=== PATIENT | male | born 1960 | race Caucasian/White ===

== ENCOUNTER → 2017-07-03 10:56 | Outpatient (CLI) | payer BC ==
[2015-04-13 17:28] VITALS: BMI 25.3
[~2017-07-03 10:56] MED LIST: CO Q 10 PO; DELZICOL400 MG PO; GLUCOSAMINE & C1 CAP PO; MULTIPLE VITAMI1 TA1 PO; OMEGA 3 FISH OI1 CAP PO; PERCOCET 10/3251 TA1 PO; PHENERGAN25 MG RC; PRILOSEC20 MG PO; ZOFRAN ODT4 MG/UDTAB PO; [UNRECOGNIZED DRUG - OTHER] PO
== END | disposition home or self-care (01) ==
LOC: D.RAD 10:56
DX: K21.9 Gastro-esophageal reflux disease without esophagitis (principal); K22.70 Barrett's esophagus without dysplasia

== ENCOUNTER 2017-08-01 05:48 | Day surgery (SDC) | payer BC ==
[~2017-08-01 05:48] MED LIST changes: +CALCIUM 250+D T1 TAB PO; +COLAZAL750 MG PO; +FLUTICASONE PRO16 GM NASAL
[2017-08-01 06:17] LABS: BASOPHILS 0.4 % (0-2); EOSINOPHILS 1.2 % (0-7); HEMATOCRIT 47.2 % (42.0-54.0); IMMATURE GRANULOCYTES 0.1 % (0-5); LYMPHOCYTES 28.6 % (15-50); MCH 30.5 pg (26.0-34.0); MCHC 33.9 g/dL (31.0-37.0); MCV 90.1 fL (80.0-100.0); MEAN PLATELET VOLUME 11.4 fL (7.4-10.4); MONOCYTES 7.8 % (2-11); NEUTROPHILS 61.9 % (40-80); PLATELET COUNT 220 10x3/uL (130-400); RBC 5.24 10x6/uL (4.20-6.10); RDW 14.4 % (11.5-14.5); WBC 6.9 10x3/uL (4.8-10.8)
[2017-08-01 06:32] LABS: CALC OSMOLALITY 277 mosm/kg (275-300); CALCIUM 9.1 mg/dL (8.5-10.1); CARBON DIOXIDE 28.8 mmol/L (21.0-32.0); CHLORIDE - SERUM 104 mmol/L (98-107); GLUCOSE 97 mg/dL (74-106); POTASSIUM - SERUM 4.3 mmol/L (3.5-5.1); SODIUM 139 mmol/L (136-145); UREA NITROGEN 13 mg/dL (7-18); eGFR NON AFRICAN AMERICAN 82 mL/min (90-120)
[2017-08-01 08:23] VITALS: BP 140/82; BMI 26.0
[2017-08-01 13:30] VITALS: BP 140/90
--- NOTE | 2017-08-01 13:30 | NUR ---
TO ROOM 2218 FROM PACU VIA BED.PT WITHOUT DISTRESS.BANDAIDS TO ABD CLEAN,DRY AND INTACT X5. ORIENTATION TO ROOM WITH PT AND FAMILY.CALL LIGHT IN REACH.
[2017-08-01 17:57] VITALS: BP 140/90; BMI 26.0
--- NOTE | 2017-08-01 18:42 | NUR ---
REMAINS WITHOUT NEEDS,WITHOUT DISTRESS.PAIN CONTROLLED WITH SOLID WASTE COLLECTOR. CONT PLAN OF CARE
[2017-08-01 20:00] VITALS: BP 138/81
--- NOTE | 2017-08-01 20:00 | NUR ---
ASSESSMENT PER FLOWSHEET BANDAIDES X5 TO LAP SITES ON ABDOMEN C/D/I. IV PATENT RT ARM OF NS AT 125CC'S/HR FELLING BUCKING SUPERVISOR OF DILAUDID IN USE FOR PAIN CONTROL. O2 ON 3L/MN PER NC NO DISTRESS. AT BEDSIDE. SCD'S ON. SR UP X2 CALL LIGHT WITHIN REACH.NPO AT THIS TIME.
--- NOTE | 2017-08-01 22:00 | NUR ---
STOOD AT BEDSIDE TO ATTEMPT TO VOID. NO VOID. WILL TRY AGAIN.
[2017-08-02] VITALS: BP 125/79
--- NOTE | 2017-08-02 | NUR ---
URINAL IN PLACE NO VOID AT THIS TIME.
--- NOTE | 2017-08-02 02:00 | NUR ---
STOOD AT BEDSIDE PLACED URINAL UNABLE TO VOID. BLADDER SCAN DONE. 945CC'S NOTED ON SCANNER. IN AND OUT CATH 1100CC'S YELLOW URINE RETURNED.
--- NOTE | 2017-08-02 03:39 | NUR ---
RESTING QUIETLY NO DISTRESS.
[2017-08-02 04:00] VITALS: BP 135/79
[2017-08-02 05:51] LABS: BASOPHILS 0.2 % (0-2); EOSINOPHILS 0 % (0-7); HEMATOCRIT 42.5 % (42.0-54.0); HEMOGLOBIN 14.3 g/dL (13.5-17.5); IMMATURE GRANULOCYTES 0.4 % (0-5); LYMPHOCYTES 7.9 % (15-50); MCH 30.1 pg (26.0-34.0); MCHC 33.6 g/dL (31.0-37.0); MCV 89.5 fL (80.0-100.0); MONOCYTES 7.7 % (2-11); NEUTROPHILS 83.8 % (40-80); PLATELET COUNT 201 10x3/uL (130-400); RBC 4.75 10x6/uL (4.20-6.10); RDW 14.4 % (11.5-14.5)
[2017-08-02 06:09] LABS: WBC 13.4 10x3/uL (4.8-10.8)
[2017-08-02 06:30] LABS: CALC OSMOLALITY 278 mosm/kg (275-300); CALCIUM 8.1 mg/dL (8.5-10.1); CARBON DIOXIDE 24.8 mmol/L (21.0-32.0); CHLORIDE - SERUM 105 mmol/L (98-107); GLUCOSE 115 mg/dL (74-106); POTASSIUM - SERUM 4.6 mmol/L (3.5-5.1); SODIUM 139 mmol/L (136-145); UREA NITROGEN 12 mg/dL (7-18); eGFR NON AFRICAN AMERICAN 82 mL/min (90-120)
--- NOTE | 2017-08-02 08:00 | NUR ---
OFF UNIT VIA FOR PROCEDURE.
--- NOTE | 2017-08-02 08:15 | NUR ---
RETURNED FROM PROCEDURE.
--- NOTE | 2017-08-02 08:50 | NUR ---
AWAKE AND ALERT. ORIENTED X3. NO C/O AT THIS TIME. LUNGS ARE CLEAR BILATERALLY, NO COUGH NOTED. SKIN IS INTACT WITHOUT REDNESS EXCEPT 5 SMALL INSERTION SITES TO ABDOMEN WHICH HAVE BANDAIDS IN PLACE. BOWEL SOUNDS ARE HYPOACTIVE AT THIS TIME. REPORTS NO VOID OF YET SINCE I/O CATH. WILL MONITOR. IV TO RIGHT HAND IS PATENT WITHOUT REDNESS AT INSERTION SITE. AT BEDSIDE. DENIES NEEDS.
--- NOTE | 2017-08-02 10:10 | NUR ---
ELECTRICAL SOFTWARE ENGINEER DISCONTINUED AT THIS TIME. PATIENT INSTRUCTED ABOUT PO PAIN MEDS. ALL QUESTIONS ANSWERED.
--- NOTE | 2017-08-02 11:15 | NUR ---
AMBULATED IN HALLWAY WITH . DID OVER 250 FEET. ABLE TO VOID 150cc CLEAR YELLOW URINE ON HIS OWN AFTER ACTIVITY. WILL CONTINUE TO MONITOR.
[2017-08-02 12:12] VITALS: BP 128/78
--- NOTE | 2017-08-02 12:30 | NUR ---
SITTING UP IN BED EATING LIQUID TRAY. DENIES DISCOMFORT WITH FOOD. WILL MONITOR.
--- NOTE | 2017-08-02 13:41 | NUR ---
VOIDED 175cc CLEAR YELLOW URINE. AMBULATED OVER 500 FEET IN HALLWAY. BLADDER SCAN POST ACTIVITY SHOWED 56ML OF URINE.
--- NOTE | 2017-08-02 14:03 | OP ---
PATIENT NAME: DIMA CAN MEDICAL RECORD: [id number] :62 LOCATION:[facility]2218 ADMISSION DATE: SURGEON: SHANTANU CHEATHAM MD DATE OF OPERATION: 08/01/2017 PREOPERATIVE DIAGNOSES: 1. GERD. 2. King esophagus. 3. Ulcerative colitis. POSTOPERATIVE DIAGNOSES: 1. GERD. 2. King esophagus. 3. Ulcerative colitis. PROCEDURE: Redo laparoscopic Lindy fundoplication. SURGEON: Shantanu Cheatham MD REPORT OF PROCEDURE: The patient's abdomen was prepped and draped in sterile fashion. A Veress needle was inserted in the left upper quadrant and the abdomen was insufflated. An 11-mm Visiport trocar was inserted in the midline just above the umbilicus. The Veress needle was inspected and there was no sign of any injury to bowel or surrounding structures. An 11-mm trocar was placed in the left subcostal region. A 5-mm trocar was placed in the epigastrium, a 5-mm trocar was placed in the left lateral abdomen, and a final 5-mm trocar was placed in the right lateral subcostal region. The liver retractor was inserted and the left lobe of the liver was elevated. The patient had some adhesions present from the previous laparoscopic hiatal hernia repair with Lindy fundoplication. These adhesions were carefully taken down. Mainly, the adhesions were of the Lindy wrap to the undersurface of the liver and also to the esophageal hiatus. As we took these adhesions down, we were able to advance into the patient's thoracic cavity. The thoracic cavity was actually quite free of adhesions. We were able to see the esophagus clearly and there was no sign of any injury throughout this portion of the procedure. We took down some more of the short gastrics on the greater curvature of the stomach and continued our dissection posterior to the stomach until we had it completely freed up. The wrap was then approached. I could see that the wrap was intact on its inferior aspect, but the superior aspect looks as if the sutures had come loose. The inferior suture was still holding the wrap together, but more loose than what I would expect it was at the time of surgery. This suture was transected and I never saw any other sutures that were holding the wrap together. At this point, we continued our dissection around the fundus of the stomach, which was wrapped around the distal esophagus. We were able to take this wrap down and completely lay everything out in its normal anatomic position. At this point, we looked at the esophageal hiatus and it had come loose at its superior portion, so a single #0 Polydek suture was used to reapproximate the tissue. This brought the tissue together where it was fairly close to the esophagus. We then performed a 360-degree posterior wrap of the fundus of the stomach around the distal esophagus. This was done using interrupted #0 Polydek times 3 with the top and the bottom suture incorporating a bite of the esophagus. The wrap appeared to lie in good position and did not appear to be too tight. We inspected the abdomen and irrigated out with normal saline. There was no sign of any active bleeding visible. At this point, the liver retractor was removed and the 11-mm trocar site fascias were then closed with interrupted #0 Vicryls using a OPERATIVE REPORT [id number] DIMA CAN suture passer device. The ports and insufflation were then removed. The wounds were then infused with a total of 10 mL of 0.25% Marcaine with epinephrine and then closed with subcutaneous 5-0 Monocryl. The wounds were then dressed appropriately. COMPLICATIONS: None. CONDITION: Stable. ANESTHESIA: General endotracheal and local. BLOOD LOSS: 50 mL. TRANSINT:[id number] Voice Confirmation ID: [id number] DOCUMENT ID: [id number] SHANTANU CHEATHAM MD at 1403 CC: LESLYE MERA MD and LILLIANA HAYES MD [id number] DICTATION DATE: 08/01/17 1239 LEAD TECHNOLOGIST IN CYTOGENETICS: 08/01/17 1350 [facility] [address] [place] [id number]
[2017-08-02] MEDS ORDERED: HYDROCODONE-APA1 TAB PO (14:41)
[2017-08-02] MEDS ORDERED: REGLAN10 MG PO (14:41)
--- NOTE | 2017-08-02 15:56 | NUR ---
DISCHARGED TO HOME AMBULATORY WITH . DISCHARGE INSTRUCTIONS GIVEN BOTH VERBALLY AND WRITTEN. ALL QUESTIONS ANSWERED. PATIENT AND VERBALIZED UNDERSTANDING OF SAME. NEEDED PRESCRIPTIONS ESCRIBED TO PHARMACY OF CHOICE AND GIVEN HARD SCRIPT FOR HYDROCODONE. IV TO RIGHT HAND D/C WITH CATHETER INTACT.
== END 2017-08-02 16:02 | disposition home or self-care (01) ==
LOC: D.OPS 05:48 → D.MS 05:48 → D.PAN 09:30 → D.OPS 10:15 → D.PAN 10:15 → D.MS 12:53 → D.OPS 08-02 16:02
PROVIDERS: Surgery
DX: K21.9 Gastro-esophageal reflux disease without esophagitis (principal); K22.70 Barrett's esophagus without dysplasia; K44.9 Diaphragmatic hernia without obstruction or gangrene; Z87.891 Personal history of nicotine dependence; Z01.812 Encounter for preprocedural laboratory examination

== ENCOUNTER → 2020-02-29 14:04 | Outpatient (CLI) | payer BC ==
[~2020-02-29 14:04] MED LIST changes: +HYDROCODONE-APA1 TAB PO; +REGLAN10 MG PO
--- NOTE | 2020-03-02 08:16 | ST ---
PATIENT:DIMA CAN MEDICAL RECORD: [id number] SEX: M LOCATION:[facility] ORDER #: ADMISSION DATE: 02/29/20 AGE OF PATIENT: 59 REFERRING PHYSICIAN: INTERPRETING PHYSICIAN: LEIGHA BEGUM MD DATE OF SERVICE: 02/29/2020 PROCEDURE: Treadmill stress test. Baseline ECG is normal. Exercise for 9 minutes 26 seconds on Philippe protocol. Maximum heart rate 152 beats per minute, greater than 85% of max predicted. No ECG changes for ischemia. No symptoms of ischemia. Normal blood pressure response to exercise. No arrhythmias noted. Fair to good exercise tolerance for age. TRANSINT:[id number] Voice Confirmation ID: [id number] DOCUMENT ID: [id number] LEIGHA BEGUM MD at 0816 CC: [id number] DICTATION DATE: 03/01/20 1534 SALES CONSULTANT: 03/02/20 0148 DEP CLI 02/29/20 [id number] [place] [id number]
--- NOTE | 2020-03-02 08:16 | EC ---
PATIENT:DIMA CAN DATE OF SERVICE: 02/29/20 SEX: M MEDICAL RECORD: [id number] DATE OF : 62 LOCATION:D[facility] AGE OF PATIENT: 59 ADMISSION DATE: 02/29/20 REFERRING PHYSICIAN: INTERPRETING PHYSICIAN: LEIGHA BEGUM MD ECHOCARDIOGRAM REPORT ECHO CHARGES 4 ECHO COMPLETE Date: 02/29/20 CLINICAL DIAGNOSIS: HEART MURMUR ECHOCARDIOGRAPHIC MEASUREMENTS (adult normal given) AC root (d.<3.7cm) 3.2 cm LV Septum d (<1.2 cm> 1.2 cm Valve Excursion 1.7 cm LV Septum (systole) 1.4 cm Left Atria (s.<4.0cm> 4.1 cm LVPW d(<1.2cm) 1.2 cm RV (d.<2.3cm) 3.8 cm LVPW (sytole) 1.7 cm LV diastole(<5.6CM) 5.0 cm MV E-F(>70mm/sec) cm LV systole 2.8 cm LVOT Diameter 1.9 cm MV exc.(>10mm) 1.5 cm Est.ejection fraction (50-75%) % DOPPLER: LVIT cm/sec A 76.0 cm/sec E 85.0 cm/sec LA cm/sec RVSP 28 mmHg LVOT 95 cm/sec AOP1/2T m/s Asc. Ao 117 cm/sec RVOT 78 cm/sec RA cm/sec PA 95 cm/sec AV Gradient Peak 5.47 mmHg AV Mean 2.66 mmHg AV Area 2.3 cm MV Gradient Peak 5.99 mmHg MV Mean 2.00 mmHg MV Area cm COMMENTS: Desktop Support Technician: 2 FIDEL MARIE Supervisor Tellers: 3 Dr. Lee TAPE# PACS Pericardial Effusion N DATE OF SERVICE: Adequate 2D, color flow imaging, spectral Doppler, and M-Mode. Borderline LVH. LV internal dimension is normal. Wall motion is normal. EF is greater than or equal to 55%. Aortic valve is tricuspid. No evidence of stenosis by Doppler interrogation. Left atrium upper limits of normal and mildly dilated at 4.1 cm. Mitral valve shows no prolapse. Trace MR. Right-sided chambers are grossly normal. Trace TR. ECHOCARDIOGRAM REPORT [id number] DIMA CAN TRANSINT:[id number] Voice Confirmation ID: [id number] DOCUMENT ID: [id number] LEIGHA BEGUM MD at 0816 CC: [id number] DICTATION DATE: 03/01/20 153 OFFSET PRESS OPERATOR: 03/01/20 2228 DEP CLI 02/29/20 [place] [id number] [place] [id number]
== END | disposition home or self-care (01) ==
LOC: D.HCCECHO 14:04
PROVIDERS: ATTEND Internal Medicine Interventional Cardiology
DX: I20.9 Angina pectoris, unspecified (principal); R01.1 Cardiac murmur, unspecified